=== PATIENT | female | born 1970 | race Caucasian/White ===

== ENCOUNTER 2019-07-05 09:50 | Emergency (ER) | payer BC, SELFPAY ==
--- NOTE | ~2019-07-05 | XR_ITS ---
XR chest 1V portable DATE: 07/05/2019 10:20 INDICATION: Cerebrovascular accident TECHNIQUE: Portable upright AP view on 07/05/2019 at 1021 hours COMPARISON: 12/03/2016 PA chest FINDINGS: No pulmonary infiltrate or consolidation or pleural effusion, pulmonary vascular congestion or pneumothorax. Osteopenia. IMPRESSION: No active pulmonary disease Reviewed, dictated and finalized at location A. IMPRESSION: No active pulmonary disease
--- NOTE | ~2019-07-05 | CT_ITS ---
EXAMINATION: CT brain wo con DATE: 07/05/2019 09:58 INDICATION: Altered mental status, dysarthria and left facial droop. Stroke protocol. TECHNIQUE: Computed tomography (CT) of the head was performed without intravenous contrast. Sagittal and coronal reconstructions were performed. The mA was adjusted according to patient size. Iterative reconstruction technique was employed. The dose-length product was 681.00 mGy-cm. COMPARISON: head CT dated 04/18/2016 FINDINGS: No acute intracranial hemorrhage, acute infarction or abnormal extra axial fluid collection. Ventricl es are normal and symmetric. No mass/mass effect. The orbits, paranasal sinuses and mastoid air cells are normal. IMPRESSION: 1. Normal head CT. Reviewed, dictated and finalized at location A. IMPRESSION: 1. Normal head CT.
--- NOTE | 2019-07-05 09:43 | ED.NEUROSD ---
HPI - Neuro Symptoms/Deficit General Chief Complaint: Suspected CVA Stated Complaint: ?CVA Source: EMS Mode of arrival: EMS Limitations: altered mental status History of Present Illness HPI Narrative: Patient presents for evaluation of altered mental status. Per EMS, patient returned home from work this morning, was in the bathroom where she was then found with decreased responsiveness via family members. Family members reportedly had to break down the door of the bathroom. Patient was noted to have left-sided facial droop and difficulty with speech. EMS was called, at the time of arrival, left-sided facial droop and difficulty with communication persist. Patient's glucose was 103. Onset of symptoms approximately 40 minutes prior to EMS arrival. Per family, patient has history of depression, no history of suicide attempt. Patient is an ICU nurse at [employer]. No history of hypertension. Related Data Allergies Allergy/AdvReac Type Severity Reaction Status Date / Time No Known Allergies Allergy Unverified 12/08/14 06:35 Review of Systems Review of Systems: ROS unobtainable: Yes unobtainable due to mental status PMFSH Past Medical History Medical History (Updated 07/05/19 @ 10:53 by Lupe Maciel MD) Depression Surgical History Surgical History (Updated 07/05/19 @ 10:50 by Lupe Maciel MD) H/O gastric bypass Social History Social History (Updated 07/05/19 @ 10:51 by Lupe Maciel MD) Smoking status: Never smoker Alcohol intake: never Substance use: never Living arrangements: with family Occupation/Education: occupation Additional occupation/education comments: Nurse Gender identity (if verbalized by the patient): Female Exam Narrative: Exam Narrative: GENERAL: Lethargic, awakens to verbal stimuli, minimally conversant HEAD: Normocephalic, atraumatic. Left-sided facial droop. EYES: 2+ PERRLA and EOMI. ENT: Nares clear, no rhinorrhea or epistaxis. Mucous membranes moist. NECK: Supple. CHEST: No respiratory distress, breathing even and non labored HEART: Regular rate, sinus rhythm ABDOMEN:Non distended, non tender EXTREMITIES: Decreased left-sided arm movement, left arm held in flexion SKIN: Warm, dry, no rash. NEURO: Patient can complete [id number] on the left, she has increased dysmetria on the right. EOMs intact without nystagmus. No facial droop, grimace is symmetric.. Intact sensation in face. Hearing intact bilaterally. Shoulder shrug intact. Strength 5/5 bilateral upper extremities. Strength 5/5 bilateral lower extremities. Ambulatory exam deferred. Course Vital Signs Vital signs: Vital Signs Temperature 36.5 C 07/05/19 09:57 Pulse Rate 89 07/05/19 09:57 Respiratory Rate 20 07/05/19 09:57 Blood Pressure 140/83 07/05/19 09:57 Pulse Oximetry 95 07/05/19 09:57 Temperature 36.5 C 07/05/19 09:57 Pulse Rate 86 07/05/19 10:50 Respiratory Rate 07/05/19 10:50 Blood Pressure 135/74 07/05/19 10:50 Pulse Oximetry 100 07/05/19 10:50 Transfer Transfered to: [facility] Transportation: ALS Transfer rationale: Acute CVA Accepting physician: MD Antonio MDM - Neuro Symptoms/Deficit MDM Narrative Medical decision making narrative: Patient is a 49-year-old female who presents via EMS for possible stroke evaluation. At the time of initial assessment, ABCs are intact. Patient's stroke scale score is 11. Patient without extremity deficit on exam. She does have some mild dysmetria on right [id number] testing. Patient without a known history of suicide attempt, patient's does report some depression, states she takes melatonin to help her sleep. Patient without any missing medications. She does not appear intoxicated. Shared decision-making occurred with the , I did speak with the [facility] neurology team in the emergency department, and neurology recommended TPA be given to this patient given her stro
[2019-07-05 09:57] VITALS: BP 140/83; PULSE 89; RESP 20; TEMP 36.5; O2SAT 95
[2019-07-05 10:05] LABS: Glucose Point of Care 114 (65-105)
[2019-07-05 10:08] LABS: Alveolar/Arterial O2 Gradient 36.8 mmHg; Base Excess ABG 0.5 mEq/l (+/-2.0); Carboxyhemoglobin 1.3 % THb (0-2.0); Fractional Inspired Oxygen 21 %; Oxygen Content ABG 11.1 %vol (16.0-22.0); Oxygen Saturation ABG 93.2 % (95.0-100.0); Oxyhemoglobin 90.3 % THb (90.0-100.0); PCO2 ABG 39.7 mmHg (35.0-45.0); PO2 ABG 65.4 mmHg (80.0-100.0); PO2 FiO2 Ratio Arterial Blood 3.11 %; Reduced Hemoglobin 8.4 %THb (0-5.0); Total Hemoglobin 8.7 g/dL (12.0-18.0); pH ABG 7.417 (7.350-7.450)
[2019-07-05 10:09] LABS: Device ROOM AIR; Modified Allen's Test Pass; Site Drawn RIGHT RADIAL
[2019-07-05 10:09] LABS: Basophils Percent Auto 0.9 % (0.2-1.2); Eosinophils Absolute Auto 0.2 K/mm3 (0-0.3); Eosinophils Percent Auto 3.6 % (0-4.4); Hematocrit 28.3 % (37.0-47.0); Hemoglobin 8.1 g/dL (12.0-15.0); Immature Granulocyte Absolute 0.01 K/mm3 (0.00-0.031); Immature Granulocyte Percent A 0.2 % (0-0.5); Lymphocytes Absolute Auto 1.85 K/mm3 (0.9-3.2); Lymphocytes Percent Auto 41.5 % (18.3-44.2); Mean Corpuscular HGB Conc 28.6 g/dl (32-36); Mean Corpuscular Hemoglobin 22.4 pg (26-34); Mean Corpuscular Volume 78.4 fl (80-100); Mean Platelet Volume 9.1 fl (7.4-10.4); Monocytes Absolute Auto 0.4 K/mm3 (0.1-0.6); Monocytes Percent Auto 8.3 % (2.6-8.5); Neutrophils Percent Auto 45.5 % (45.5-73.1); Platelet Count Result 222 k/mm3 (150-375); Red Blood Count 3.61 M/mm3 (4.2-5.4); Red Cell Distribution Width 16.3 % (11.5-14.5); White Blood Count 4.5 K/mm3 (4.5-10.0)
[2019-07-05 10:11] VITALS: BP 140/83; PULSE 84; RESP 18; O2SAT 98
[2019-07-05 10:18] LABS: Hypochromasia 2+ (NORMAL); Platelet Estimate Adequate (Adequate)
[2019-07-05 10:20] LABS: Partial Thromboplastin Time 26.6 SECONDS (22.3-36.8)
[2019-07-05 10:22] LABS: Alanine Aminotransferase 15 U/L (4-35); Albumin Level 4.2 g/dL (3.5-5.1); Alkaline Phosphatase 69 U/L (38-126); Aspartate Amino Transferase 26 U/L (14-36); Bilirubin,Total 0.3 mg/dL (0.2-1.3); Blood Urea Nitrogen 17 mg/dL (7-17); Calcium 8.6 mg/dL (8.4-10.2); Carbon Dioxide 26 mmol/L (22-30); Chloride 102 mmol/L (98-107); Estimated CRCL calculation 92 ml/min; Estimated Glomerular Filt Rate > 60; Glucose 113 mg/dL (65-105); Potassium 3.8 mmol/L (3.4-5.0); Sodium 136 mmol/L (137-145)
[2019-07-05 10:33] LABS: Troponin I < 0.012 ng/mL (0.000-0.034)
[2019-07-05 10:35] VITALS: BP 127/67; PULSE 90; RESP 21; O2SAT 99
[2019-07-05 10:44] LABS: Add Urine Microscopic? YES; Appearance Urine Clear (Clear); Bacteria Urine Trace /hpf; Bilirubin Urine Negative (Negative); Blood Urine Negative (Negative); Color Urine Yellow (Yellow); Glucose Urine UA Negative (Negative); Ketones Urine Negative (Negative); Leukocyte Esterase Ur Trace LEU/UL (Negative); Mucus Urine Few /lpf; Nitrate Urine Positive (Negative); Protein Urine 1+ mg/dL (Negative); RBC Urine 0-2 /hpf (0-2); Specific Grav Ur 1.031 (1.001-1.035); Squamous Epithelial Cell Urine Occasional /hpf (Few); Urobilinogen Urine Negative mg/dL (<2.0)
[2019-07-05 10:50] VITALS: BP 135/74; PULSE 86; RESP 20; O2SAT 100
[2019-07-05 11:08] LABS: Amphetamine Screen Urine Negative (Negative); Barbiturate Screen Urine Negative (Negative); Benzodiazepines Screen Urine Positive (Negative); Cannabinoid Screen Urine Negative (Negative); Cocaine Screen Urine Negative (Negative); Methadone Screen Urine Negative (Negative); Opiate Screen Urine Positive (Negative); Phencyclidine Screen Urine Negative (Negative)
[2019-07-05 11:14] VITALS: BP 135/74; PULSE 80; RESP 20; O2SAT 100
--- NOTE | 2019-07-05 13:00 | ECG_ITS ---
Measurements Intervals [place] Rate: 89 P: 16 AK: 165 QRS: -14 QRSD: 105 T: 3 QT: 384 QTc: 468 Interpretive Statements SINUS RHYTHM DELAYED PRECORDIAL R/S TRANSITION VOLTAGE CRITERIA FOR LVH BORDERLINE T WAVE ABNORMALITY- INFERIOR LEADS BASELINE WANDER- I, II, AVR, AVL, AVF, V1, V6 BORDERLINE ECG Electronically Signed On 07-05-2019 13:19:48 CDT by Ford Prieto D.O.
== END 2019-07-05 11:16 | disposition short-term general hospital (02) ==
PROVIDERS: Emergency Provider Emergency Medicine; PCP Internal Medicine
DX: R47.1 Dysarthria and anarthria (principal); R53.1 Weakness; R27.8 Other lack of coordination; R29.810 Facial weakness; Z98.84 Bariatric surgery status; R94.31 Abnormal electrocardiogram [ECG] [EKG]; F11.90 Opioid use, unspecified, uncomplicated; F13.90 Sedative, hypnotic, or anxiolytic use, unspecified, uncomplicated
CPT/HCPCS: 36415; 36600; 37195; 51701; 70450; 71045; 80053; 80307; 81001; 82375; 82805; 82948; 83050; 84484; 85025; 85610; 85730; 93005; 99285; J2997; J7030